=== PATIENT | female | born 1955 | race American Indian/Alaskan Native ===

== ENCOUNTER → 2019-10-25 | Outpatient (CLI) | payer OTHER ==
--- NOTE | 2019-10-25 09:28 | XR ---
EXAMINATION TYPE: XR chest 2V DATE OF EXAM: 10/25/2019 COMPARISON: None HISTORY: Shortness of breath TECHNIQUE: Frontal and lateral views of the chest are obtained. FINDINGS: Patient is rotated. Bronchial wall thickening suspected. There is no focal air space opacit y, pleural effusion, or pneumothorax seen. The cardiac silhouette size is within normal limits. Th e osseous structures are intact, there is thoracic spondylosis. IMPRESSION: Correlate for bronchiolitis, reactive airways disease.
[2019-10-25 10:26] LABS: Basophils % (A) 1 %; Eosinophils # (A) 0.2 k/uL (0-0.7); Eosinophils % (A) 5 %; HCT 43.5 % (34.0-46.0); HGB 14.3 gm/dL (11.4-16.0); Lymphocytes % (A) 45 %; MCHC 32.8 g/dL (31.0-37.0); MCV 88.5 fL (80.0-100.0); Mean Platelet Volume 6.7; Monocytes # (A) 0.2 k/uL (0-1.0); Monocytes % (A) 5 %; Neutrophils # (A) 1.9 k/uL (1.3-7.7); Neutrophils % (A) 43 %; Platelet Count 242 k/uL (150-450); RBC 4.91 m/uL (3.80-5.40); RDW 13.1 % (11.5-15.5); WBC 4.4 k/uL (3.8-10.6)
[2019-10-25 10:45] LABS: ALT 41 U/L (9-52); AST 35 U/L (14-36); African American GFR (CKD) >90 (>60 ml/min/1.73 sqM); Albumin 4.8 g/dL (3.5-5.0); Alkaline Phosphatase 90 U/L (38-126); Anion Gap 9 mmol/L; Blood Urea Nitrogen 14 mg/dL (7-17); Calcium 10.3 mg/dL (8.4-10.2); Carbon Dioxide 29 mmol/L (22-30); Chloride 104 mmol/L (98-107); Cholesterol 179 mg/dL (<200); Glucose 107 mg/dL (74-99); HDL Cholesterol 82 mg/dL (40-60); LDH 480 U/L (313-618); LDL Cholesterol,Calculated 83 mg/dL (0-99); Magnesium 1.9 mg/dL (1.6-2.3); Non-African American GFR(CKD) 87 (>60 ml/min/1.73 sqM); Potassium 4.6 mmol/L (3.5-5.1); Sodium 142 mmol/L (137-145); Total Bilirubin 0.6 mg/dL (0.2-1.3); Total Protein 7.5 g/dL (6.3-8.2); Triglycerides 71 mg/dL (<150)
--- NOTE | 2019-10-25 11:00 | XR ---
Left knee HISTORY: Left knee pain 3 views the left knee There is joint space loss, marginal spurring medial compartment. Alignment and bone mineralization ar e maintained. Marked spurring, joint space loss present at the patellofemoral joint. No sizable joint effusion. No fracture or dislocation. IMPRESSION: Osteoarthritis,
[2019-10-25 11:20] LABS: Creatine Kinase MB 1.8 ng/mL (0.0-2.4); Troponin I <0.012 ng/mL (0.000-0.034)
[2019-10-25 11:39] LABS: T4, Free (Free Thyroxine) 1.12 ng/dL (0.78-2.19)
[2019-10-25 18:52] LABS: Hemoglobin A1C 5.8 % (4.0-6.0)
== END | disposition home or self-care (01) ==
LOC: RADXRMAIN 08:25
PROVIDERS: ATTEND Family Medicine
DX: M17.12 Unilateral primary osteoarthritis, left knee (principal); R06.02 Shortness of breath; R42 Dizziness and giddiness; R53.83 Other fatigue; I10 Essential (primary) hypertension; R06.00 Dyspnea, unspecified; R00.2 Palpitations; Z79.899 Other long term (current) drug therapy
CPT/HCPCS: 36415; 71046; 80053; 80061; 82553; 83036; 83615; 83735; 83880; 84439; 84443; 84484; 85025; 85379

== ENCOUNTER → 2020-07-06 | Outpatient (CLI) | payer BC ==
--- NOTE | 2020-07-06 20:28 | XR ---
EXAMINATION TYPE: XR lumbosacral spine min 4V DATE OF EXAM: 07/06/2020 CLINICAL HISTORY: Lower back pain for 6 months. No known injury. TECHNIQUE: Frontal, lateral, oblique views of the lumbar spine obtained. COMPARISON: None. FINDINGS: There are 5 lumbar type vertebral bodies identified. The lumbar spine shows satisfactory alignment without evidence of acute fracture or dislocation. Vertebral body heights are within normal limits. There is disc space narrowing at L5-S1. There is grade 1 anterolisthesis of L4 on L5. There is diffuse facet arthropathy worse inferiorly. Anterior osteophytic spurring IMPRESSION: 1. No acute fracture or dislocation is seen in the lumbar spine. 2. Degenerative disc disease and facet arthropathy, with grade 1 anterolisthesis of L4 on L5.
--- NOTE | 2020-07-06 20:37 | XR ---
EXAMINATION TYPE: XR Hip Complete LT DATE OF EXAM: 07/06/2020 CLINICAL HISTORY: Left hip pain for 6 months. No known injury. TECHNIQUE: AP and frogleg views of the left hip are obtained. COMPARISON: None. FINDINGS: There is no acute fracture or dislocation of the left hip. The hip joint space appears wi thin normal limits. There is mild irregularity of the greater trochanter without significant spurrin g. Normal osseous mineralization. The overlying soft tissue appears unremarkable. IMPRESSION: There is no acute fracture or dislocation of the left hip.
== END | disposition home or self-care (01) ==
LOC: RADXRMAIN 09:38
PROVIDERS: ATTEND Family Medicine
DX: M43.16 Spondylolisthesis, lumbar region (principal); M51.36 Other intervertebral disc degeneration, lumbar region; M47.816 Spondylosis without myelopathy or radiculopathy, lumbar region; M25.552 Pain in left hip
CPT/HCPCS: 72110; 73502

== ENCOUNTER → 2020-07-12 | Outpatient (CLI) | payer BC ==
--- NOTE | 2020-07-12 15:15 | US ---
EXAMINATION TYPE: US pelvic complete DATE OF EXAM: 07/12/2020 COMPARISON: NONE CLINICAL HISTORY: R10.2 Female Pelvic Pain. TECHNIQUE: . Transabdominal sonographic images of the pelvis were acquired. Transvaginal sonographi c images were medically necessary to better assess the following anatomy: Uterus, ovaries Date of LMP: Post menopausal EXAM MEASUREMENTS: Uterus: 7.7 x 4.8 x 4.7 cm Endometrial Stripe: 0.2 cm Right Ovary: 1.6 x 1.3 x 1.0 cm Left Ovary: 1.5 x 1.0 x 0.5 cm 1. Uterus: Anteflexed with fibroid = 3.1 x 2.8 x 2.1 cm with calcifications 2. Endometrium: wnl 3. Right Ovary: wnl 4. Left Ovary: wnl Spectral, color and waveform doppler imaging shows good arterial and venous flow within the ovaries ; there is no evidence for ovarian torsion. 5. Bilateral Adnexa: wnl 6. Posterior cul-de-sac: wnl IMPRESSION: 1. There is a 3.1 cm mass in the uterus with calcifications in a pattern most typical of a uterine fi broid.
== END | disposition home or self-care (01) ==
LOC: RADUSWWP 14:33
PROVIDERS: ATTEND Family Medicine
DX: N85.8 Other specified noninflammatory disorders of uterus (principal); D25.9 Leiomyoma of uterus, unspecified
CPT/HCPCS: 76830; 76856

== ENCOUNTER → 2025-03-23 | Outpatient (CLI) | payer BC ==
[~2025-03-23] MED LIST: REGADENOSON 0.4 MG/5 ML SYRINGE IV ONE
--- NOTE | 2025-03-23 12:43 | CA ---
Lexiscan Nuclear Stress Test Report Name: Sidra Cheek Exam Date: 03/23/2025 10:28 Exam Location: [facility] Ht (in): 61 Wt (lb): 156 BSA: 1.70 Ordering Phys: Austyn Pandey DO Referring Phys: AUSTYN PANDEY Technologist: Herman Reis Age: 69 Gender: F : 1955 Procedure CPT: Indications: R079 CHEST PAIN ICD-10 Codes: Patient History: CHEST PRESSURE, DIFFICULTY IN BREATHING, HTN, HYPERCHOLESTEROLEMIA, FAMILY HX O F HEART DISEASE Medications: ATORVASTATIN,,,, VITAMIN D,,,, RAMAPRIL,,,, HYDROCHLOROTHYAZIDE,,,, MULTIVITAMIN,,,, BIOTIN,,,, Aspirin,,, Meds past 24 hrs: Pretest Chest Pain: STRESS TEST Lexiscan Protocol Exercise Duration (min:sec): 02:[address] Depressions (mm): Angina Score: Polk Score: Resting HR (bpm): 51 Peak HR (bpm): 80 Resting BP (mmHg): 134 / 79 Peak BP (mmHg): 134 / 79 MPHR: 151 Target HR: 128 % MPHR: 53 METS: 1.0 Total Dose: Peak Dose: Atropine: Double Product: 04515 BP Response: Stress Termination: INFUSION COMPLETE Stress Symptoms: CHEST PAIN "8" Stress Summary: ECG ANALYSIS Resting ECG: Sinus rhythm. Normal conduction. No arrhythmias. Normal repolarization. Stress ECG: No ECG changes from baseline with Lexiscan infusion. CONCLUSIONS No ECG evidence of ischemia with Lexiscan infusion. Nuclear test results to follow. Dr. Javier Stubbs MD (Electronically Signed) Final Date: 23 March 2025 12:42
--- NOTE | 2025-03-23 17:39 | NM ---
EXAMINATION TYPE: NM stress lexiscan cardiolite DATE OF EXAM: 03/23/2025 COMPARISON: NONE CLINICAL INDICATION: Female, 69 years old with history of R079 CHEST PAIN, TECHNIQUE: After the intravenous administration of 9.8 mCi Tc 99m Sestamibi - Cardiolite resting SPE CT images acquired 65 minutes post injection. At peak stress 25.4 mCi Tc 99m Sestamibi - Stress images obtained 54 minutes post injection The patient was stressed with 0.4mg Lexiscan. FINDINGS: There is a small area of diminished radiotracer at the cardiac apex on the stress images wh ich has a normal appearance on the resting images. Tiny stress-induced ischemic change may be along t he cardiac apex extending towards the inferior wall. SPECT imaging and polar maps match. Wall motion is normal. Ejection fraction is calculated to be 64 %. IMPRESSION: 1. There may be a tiny area of stress-induced ischemic change in the cardiac apex. 2. Remainder of the stress study has a more normal appearance [facility], , 03/23/2025 5:37 PM
== END | disposition home or self-care (01) ==
LOC: RADNMMAIN 08:47
PROVIDERS: ATTEND Family Medicine
DX: R07.9 Chest pain, unspecified (principal); E78.00 Pure hypercholesterolemia, unspecified; I10 Essential (primary) hypertension; R06.00 Dyspnea, unspecified; Z82.49 Family history of ischemic heart disease and other diseases of the circulatory system
CPT/HCPCS: 93017; 78452; A9500